=== PATIENT | male | born 1990 | race Caucasian/White ===

== ENCOUNTER 2019-04-25 17:42 | Emergency (ER) | payer MEDICAID ==
[~2019-04-25] VITALS: Ht 175.3 cm; Wt 56.7 kg
[2019-04-25 17:52] VITALS: BP_SYST 118
--- NOTE | 2019-04-25 17:55 | NUR ---
Patient to ER bed H1 to gown for evaluation. Side rails up.
--- NOTE | 2019-04-25 18:00 | NUR ---
Pt bib PD for clearance to book
--- NOTE | 2019-04-25 18:30 | NUR ---
ER at bedside examining patient.
--- NOTE | 2019-04-25 19:00 | NUR ---
Patient ambulated to radiology, accompanied by airdrop systems technician, officer.
[2019-04-25 19:30] VITALS: BP_SYST 121
--- NOTE | 2019-04-25 19:30 | NUR ---
Patient given written and verbal discharge instructions and verbalizes understanding. ER MD discussed with patient the results and treatment provided. Patient in stable condition. ID arm band removed. No Rx of given. Patient educated on pain management and to follow up with PMD. Pain Scale 0. Opportunity for questions provided and answered. Medication side effect fact sheet provided.
== END 2019-04-25 19:30 ==
LOC: SED 17:42
DX: Z02.89 Encounter for other administrative examinations (principal); R07.89 Other chest pain; F11.90 Opioid use, unspecified, uncomplicated; F15.90 Other stimulant use, unspecified, uncomplicated; R06.02 Shortness of breath; R11.0 Nausea
CPT/HCPCS: 71045; 93005; 99283